=== PATIENT | male | born 2000 | race Caucasian/White ===

== ENCOUNTER 2022-07-22 09:41 | Emergency (ER) | payer OTHER, SELFPAY ==
--- NOTE | ~2022-07-22 | XR_ITS ---
EXAMINATION: XR KNEE, RIGHT CLINICAL INFORMATION: Trauma COMPARISON: None available. TECHNIQUE: Four views of the right knee. FINDINGS: Bones and soft tissues are normal. There is no fracture. There is knee joint effusion.. Alignment is anatomic. Joint spaces are well maintained. No abnormal soft tissue calcification. XR/XR knee RT 4V IMPRESSION: No fracture or dislocation. There is moderate size knee joint effusion.
[2022-07-22 09:46] VITALS: BP 120/66; PULSE 84; RESP 17; TEMP 36.8; O2SAT 98; BMI 20.9
--- NOTE | 2022-07-22 10:27 | ED.LOWEXIN ---
HPI - Extremity Injury (Lower) General Chief Complaint: Extremity Injury, Lower Stated Complaint: r knee inj playing basketball Time Seen by Provider: 07/22/22 10:05 Source: patient Mode of arrival: ambulatory Limitations: no limitations History of Present Illness HPI Narrative: 21-year-old male healthy here with right knee pain. Patient reports he jumped up to play basketball yesterday when he came down he twisted the knee feeling immediate pain in his right knee. Since then he has pain with weight-bearing and feels the knee is unstable. He denies any numbness or tingling of the extremity. Related Data Allergies Allergy/AdvReac Type Severity Reaction Status Date / Time No Known Allergies Allergy Verified 07/22/22 09:48 [No Known Allergies*] Review of Systems Review of Systems: Yes all other systems are reviewed and are negative Constitutional: Constitutional: Reports no additional constitutional complaints, Denies body ache(s), Denies chills, Denies fever(s), Denies headache(s) and Denies weakness Eyes: Eyes: Reports no additional eye complaints and Denies change in vision ENT: Reports system reviewed and no additional complaints, except as documented, Denies dizziness, Denies headache(s), Denies nasal congestion, Denies nasal discharge and Denies neck pain Cardiovascular: Cardiovascular: Reports no additional cardiovascular complaints, Denies chest pain, Denies leg edema and Denies dyspnea Respiratory: Respiratory: Reports no additional respiratory complaints, Denies cough and Denies dyspnea Gastrointestinal: Gastrointestinal: Reports no additional gastrointestinal complaints, Denies abdominal pain, Denies diarrhea, Denies nausea and Denies vomiting Genitourinary: Genitourinary: Denies urinary incontinence Musculoskeletal: Musculoskeletal: Reports no additional musculoskeletal complaints, Denies back pain, Reports arthralgias, Reports joint swelling, Denies limited range of motion, Denies neck pain, Denies numbness and Denies tingling Integumentary/Breasts: Skin/Breast: Reports system reviewed and no additional complaints, except as docu and Denies rash Neurologic: Reports system reviewed and no additional complaints, except as documented, Denies Abnormal speech present, Denies dizziness, Denies headache(s), Denies numbness, Denies tingling and Denies weakness [facility] Past Medical History Attestation statement: The following information was validated with the patient. Source: old records reviewed and nursing notes reviewed Social History Social History Advance Directives: No Advance Directives Information Provided: Yes Physical Exam Vital Signs: Vital Signs: Last Vital Signs Temp 97.5 F 07/22/22 10:46 Pulse 118 H 07/22/22 10:46 Resp 18 07/22/22 10:46 BP 120/66 07/22/22 09:46 Pulse Ox 93 07/22/22 10:46 O2 Del Method Room Air 07/22/22 10:46 BMI result Body Mass Index 20.9 Const: General: cooperative, healthy appearing, comfortable and no acute distress Orientation/consciousness: patient oriented x3 Limitations: no limitations HEENT: Head: Yes normal to inspection Ears: hearing grossly normal bilaterally General nose exam: Normal external nose present Face and sinus: Yes normal facial exam Mouth: Normal oral and palatal mucosa present Throat: Yes posterior oropharynx normal Eyes: General: appearance normal, both eyes and all related structures Pupils: Equal, round and reactive pupils present Neck: Neck: Yes normal visual inspection Chest: Chest palpation & inspection: normal inspection of the chest Resp: Effort & Inspection: normal respiratory effort Auscultation: clear to auscultation bilaterally Cardio: Rate: regular rate Rhythm: regular rhythm Peripheral pulses: Peripheral pulses 2+ throughout GI: Inspection: Yes normal to inspection Palpation (GI): Soft to palpation and nontender Auscultation: normal bowel sounds Back/Spine/Pelvis: Thoracic/Lumbar Spine: thoracic and lumbar spine normal to inspection Skin: General skin exam: no rashes or lesions noted Neuro: General: patient oriented x3, no focal motor deficits and normal sensation to monofilament Cranial nerves: Yes Equal, round and reactive pupils present Cognition (Neuro): normal cognition Speech: No Abnormal speech present Gait exam (Neuro): Normal gait present Motor exam (neuro): 5/5 motor strength present throughout Extrem: Other: Patient was swelling of the right knee noted. Patient tenderness over the anterior and lateral aspect of the knee. Patient is able to flex and extend the knee with no difficulty. Unable to assess any ligamental laxity due to swelling. Patient with intact range of motion passively and actively of the right ankle and right foot. Normal DP and PT pulses distally. Normal sensation intact distally. General: Yes normal to inspection Course Course Course Narrative: X-ray show no fracture. Likely sprain. Patient placed in Alvin wrap and given crutches for home. Reviewed rice. Reviewed worrisome signs symptoms of when to return to the emergency room. Comfortable plan for discharge home. Medical Decision Making Medical Decision Making MDM Narrative: This is a 21-year-old male who had a twisting injury of the right knee last night while playing basketball. On exam patient with swelling and tenderness. Unable to assess ligamental laxity due to swelling. Likely sprain, consider ligamentous injury Will obtain x-ray Differential Diagnosis Differential Diagnoses: The differential diagnosis associated with the presentation includes Sprain, ligamentous injury, fracture. Low concern for vascular injury Independent Interpretation I performed an independent interpretation of an: Plain X-Ray Interpretation: I indepedendetely reviewed the x-ray and agree with radiologist's report Radiology Impression Discussion of test interpretation with radiology: I have reviewed the radiologist's reading. Radiologist Impression: [place] [id number] XRay Report Signed Patient: Joe Montesinos MR#: [id number] : 2000 Acct:[id number] Age/Sex: 21 / M ADM Date: 07/22/22 Loc: .ED Attending Dr: Ordering Physician: Umer La MD Date of Service: 07/22/22 Procedure(s): XR knee RT 4V Accession Number(s): [id number] cc: Umer La MD~ EXAMINATION: XR KNEE, RIGHT? CLINICAL INFORMATION: Trauma? COMPARISON: None available.? TECHNIQUE: Four views of the right knee. FINDINGS: Bones and soft tissues are normal. There is no fracture. There is knee joint effusion.. Alignment is anatomic. Joint spaces are well maintained. No abnormal soft tissue calcification.? XR/XR knee RT 4V IMPRESSION: No fracture or dislocation. ? There is moderate size knee joint effusion. ? Discharge Plan Discharge Clinical Impression: Knee sprain Patient Disposition: Home, Self-Care Instructions: Knee Sprain (ED), R.I.C.E. Treatment (ED) Additional Instructions: Your x-ray show no broken bones You may have a sprain of your ligament and your knee. You should use the Alvin wrap and crutches for the next few days, elevate your leg, apply ice Take Motrin or Tylenol for pain as needed If there is still having pain after 7 days you may need to follow-up with her primary care doctor to obtain a referral to see orthopedics Referrals: Physician,Morgan J [Primary Care Provider] - Interventions: ED Discharge Assessment Last Done: 07/22/22 11:31 Discharge Date/Time: 07/22/22 11:31
[2022-07-22 10:46] VITALS: PULSE 118; RESP 18; TEMP 36.4; O2SAT 93
== END 2022-07-22 11:31 | disposition home or self-care (01) ==
PROVIDERS: Emergency Provider Emergency Medicine
DX: S83.91XA Sprain of unspecified site of right knee, initial encounter (principal); X50.1XXA Overexertion from prolonged static or awkward postures, initial encounter; M25.461 Effusion, right knee; Y93.67 Activity, basketball; Y92.310 Basketball court as the place of occurrence of the external cause; Y99.9 Unspecified external cause status
CPT/HCPCS: 73564; 99283